=== PATIENT | male | born 1980 | race Caucasian/White ===

== ENCOUNTER 2018-12-02 19:05 | Emergency (ER) | payer SELFPAY, OTHER ==
[2018-12-02] MEDS: ONDANSETRON 4 MG INJ IV (22:42)
[2018-12-02] MEDS: GLUCAGON 1 MG INJ IV (22:42)
[2018-12-02] MEDS: LIDOCAINE/MYLANTA 40 ML BTL PO (22:42)
[2018-12-02] MEDS: SOD CHLORIDE 0.9% 1,000 ML IV (22:58)
== END 2018-12-03 01:57 | disposition home or self-care (01) ==
LOC: E/R 19:05
DX: R09.89 Other specified symptoms and signs involving the circulatory and respiratory systems (principal); R07.0 Pain in throat
CPT/HCPCS: 71045; 82962; 96374; 96375; 99284-25